=== PATIENT | male | born 1960 | race Caucasian/White ===

== ENCOUNTER → 2022-08-31 | Outpatient (CLI) | payer MEDICAID | LOC: M PLAIMG 12:59 | PROVIDERS: ATTEND Student in an Organized Health Care Education/Training Program | DX: M47.16 Other spondylosis with myelopathy, lumbar region (principal) ==

== ENCOUNTER → 2022-09-12 | Outpatient (CLI) | payer MEDICAID | LOC: M WUC 13:18 | PROVIDERS: ATTEND Student in an Organized Health Care Education/Training Program | DX: M25.532 Pain in left wrist (principal); M54.16 Radiculopathy, lumbar region ==

== ENCOUNTER 2022-11-04 00:33 | Emergency (ER) | payer MEDICAID, OTHER ==
[~2022-11-04] VITALS: Ht 193 cm; Wt 107.7 kg
[2022-11-04 00:33] VITALS: BP 152/76; TEMP 98.2; O2SAT 98
== END 2022-11-04 01:54 | disposition left against medical advice (07) ==
LOC: M ED 00:33
DX: Z53.21 Procedure and treatment not carried out due to patient leaving prior to being seen by health care provider (principal)

== ENCOUNTER 2022-11-12 02:46 | Emergency (ER) | payer OTHER ==
[~2022-11-12] VITALS: Ht 193 cm; Wt 105.9 kg
[2022-11-12 04:05] LABS: HEMATOCRIT 40.3 % (42.0-52.0); HEMOGLOBIN 13.3 g/dl (13.5-17.5); MEAN CORPUSCULAR HEMOGLOBIN 29.4 pg (27.0-33.0); PLATELET COUNT, AUTOMATED 234 10^3/uL (150-450); RED BLOOD COUNT 4.53 10^6/uL (4.30-6.10)
[2022-11-12 04:31] LABS: BLOOD UREA NITROGEN 23 MG/DL (9-23); CALCIUM LEVEL 8.6 MG/DL (8.3-10.6); CARBON DIOXIDE LEVEL 26 MMOL/L (20-31); CHLORIDE LEVEL 108 MMOL/L (98-107); GLOMERULAR FILTRATION RATE > 60.0 (>49); GLUCOSE, FASTING 133 MG/DL (74-106); POTASSIUM SERUM 3.9 MMOL/L (3.5-5.1); SODIUM LEVEL 141 MMOL/L (136-145)
[2022-11-12] MEDS ORDERED: KETOROLAC 60MG 2ML VIAL IM ONE (07:55)
[2022-11-12] MEDS ORDERED: CEPHALEXIN 500 MG CAP PO ONE (07:55)
[2022-11-12] MEDS ORDERED: CEPH500C PO (09:14)
[2022-11-12 09:32] VITALS: BP 150/79; TEMP 98.6; O2SAT 100
== END 2022-11-12 09:34 | disposition home or self-care (01) ==
LOC: M ED 02:46
DX: L08.9 Local infection of the skin and subcutaneous tissue, unspecified (principal); S62.112A Displaced fracture of triquetrum [cuneiform] bone, left wrist, initial encounter for closed fracture; W19.XXXA Unspecified fall, initial encounter; Y92.89 Other specified places as the place of occurrence of the external cause; Y93.89 Activity, other specified; Y99.8 Other external cause status
CPT/HCPCS: 36415; 73110; 73590; 80048; 85027; 86140; 93971; 96372; 99284; J1885

== ENCOUNTER → 2022-11-14 | Outpatient (REF) | payer OTHER ==
[~2022-11-14] MED LIST: CEPH500C PO
== END ==
LOC: M LAB REF 12:32
PROVIDERS: ATTEND Family Medicine Addiction Medicine
DX: Z85.46 Personal history of malignant neoplasm of prostate (principal)

== ENCOUNTER 2023-05-13 16:28 | Emergency (ER) | payer OTHER ==
[~2023-05-13] VITALS: Ht 193 cm; Wt 115.2 kg
[2023-05-13] MEDS ORDERED: OXYC1TAB23 (16:41)
[2023-05-13] MEDS ORDERED: MAGN400T2 PO (16:41)
[2023-05-13] MEDS ORDERED: TOPI25TA10 PO (16:41)
[2023-05-13] MEDS ORDERED: AMIT25TA19 PO (16:41)
[2023-05-13] MEDS ORDERED: GABA600T4 PO (16:41)
[2023-05-13] MEDS ORDERED: PANT20TA6 PO (16:41)
[2023-05-13 17:20] LABS: BASO # 0.1 10^3/uL (0.0-0.2); BASO % 0.8 % (0.0-1.0); EOS # 0.2 10^3/uL (0.0-0.5); EOS % 2.8 % (0.0-3.0); HEMATOCRIT 37.1 % (42.0-52.0); HEMOGLOBIN 12.6 g/dl (13.5-17.5); LYMPH # 1.5 10^3/uL (1.5-5.0); LYMPH % 20.3 % (24.0-44.0); MEAN CORPUSCULAR HEMOGLOBIN 30.7 pg (27.0-33.0); MEAN CORPUSCULAR VOLUME 90.3 fl (80.0-96.0); MONO # 0.6 10^3/uL (0.0-0.8); MONO % 7.9 % (2.0-8.0); NEUTROPHILS # 5.1 10^3/uL (1.5-8.5); NEUTROPHILS % 68.1 % (36.0-66.0); PLATELET COUNT, AUTOMATED 201 10^3/uL (150-450); RED BLOOD COUNT 4.11 10^6/uL (4.30-6.10); WHITE BLOOD COUNT 7.5 10^3/uL (4.0-10.0)
[2023-05-13 17:33] LABS: INR 1.03; PARTIAL THROMBOPLASTIN TIME 30.1 SECONDS (24.8-34.2); PROTHROMBIN TIME 13.2 SECONDS (12.5-14.5)
[2023-05-13 17:41] LABS: BLOOD UREA NITROGEN 27 MG/DL (9-23); CALCIUM LEVEL 8.9 MG/DL (8.3-10.6); CARBON DIOXIDE LEVEL 25 MMOL/L (20-31); CHLORIDE LEVEL 111 MMOL/L (98-107); CREATININE FOR GFR 1.24 MG/DL (0.70-1.30); GLOMERULAR FILTRATION RATE > 60.0 (>49); GLUCOSE, FASTING 99 MG/DL (74-106); SODIUM LEVEL 142 MMOL/L (136-145)
[2023-05-13 18:30] VITALS: BP 139/73; TEMP 97.8; O2SAT 98
== END 2023-05-13 18:47 | disposition home or self-care (01) ==
LOC: M ED 16:28
DX: M79.651 Pain in right thigh (principal); S90.112A Contusion of left great toe without damage to nail, initial encounter; W22.8XXA Striking against or struck by other objects, initial encounter; Y92.003 Bedroom of unspecified non-institutional (private) residence as the place of occurrence of the external cause; Y93.9 Activity, unspecified; Y99.9 Unspecified external cause status; Z87.820 Personal history of traumatic brain injury; I10 Essential (primary) hypertension; Z79.899 Other long term (current) drug therapy

== ENCOUNTER → 2023-09-03 | Outpatient (REF) | payer OTHER ==
[~2023-09-03] MED LIST changes: +AMIT25TA19 PO; +GABA600T4 PO; +MAGN400T2 PO; +OXYC1TAB23; +PANT20TA6 PO; +TOPI25TA10 PO
== END ==
LOC: M SFHCADAM 08:14
PROVIDERS: ATTEND Physician Assistant
DX: C61 Malignant neoplasm of prostate (principal)